=== PATIENT | male | born 1970 | race Caucasian/White ===

== ENCOUNTER 2018-10-15 11:30 | Outpatient (REF) | payer MEDICAID, SELFPAY ==
[2018-10-15 19:16] LABS: HGB 15.4 g/dL (13.5-17.5); Mean Corp. HGB Concentration 34.2 g/dL (32.0-36.0); Mean Corpuscular Hemoglobin 29.6 pg (27.0-33.0); Mean Corpuscular Volume 86.4 fL (80-95); Mean Platelet Volume 13.5 fL (8.0-11.0); RBC 5.21 m/cumm (4.50-6.00); RBC Distribution Width 13.3 % (11.8-14.1); White Blood Cell Count 8.64 k/cumm (4.4-10.8)
[2018-10-15 19:32] LABS: ALT 30 U/L (12-78); AST 18 U/L (15-37); Albumin 3.7 g/dL (3.4-5.0); Alkaline Phosphatase 78 U/L (46-116); Anion Gap 8.9 mmol/L (3-11); BUN 13 mg/dL (7-18); Bilirubin, Total 0.4 mg/dL (0.2-1.0); CO2 27.1 mmol/L (21.0-32.0); CREATININE 0.91 mg/dL (0.70-1.30); Calcium 8.5 mg/dL (8.5-10.1); Calculated LDL 125; Chloride 104 mmol/L (98-107); Cholesterol 176 mg/dL (50-200); Glucose 105 mg/dL (70-100); HDL Cholesterol 45 mg/dL (40-60); Potassium 4.1 mmol/L (3.5-5.1); Sodium 140 mmol/L (136-145); TSH 1.31 uIU/mL (0.358-3.74); Total Protein 6.7 g/dL (6.4-8.2); Triglyceride 31 mg/dL (30-150)
[2018-10-15 20:03] LABS: Platelet Count 119 x1000/uL (130-400)
[2018-10-15 20:09] LABS: Hemoglobin A1C 5.7 % (4.5-6.2)
[2018-10-18 11:07] LABS: PSA, Screening 0.6 ng/ml (0-2.5)
== END 2018-10-15 11:50 ==
LOC: NCHCN 11:30
PROVIDERS: PCP Physician Assistant Medical; Visit Provider Physician Assistant Medical
DX: R73.9 Hyperglycemia, unspecified (principal); N40.0 Benign prostatic hyperplasia without lower urinary tract symptoms; Z12.5 Encounter for screening for malignant neoplasm of prostate; Z13.6 Encounter for screening for cardiovascular disorders; Z13.29 Encounter for screening for other suspected endocrine disorder
CPT/HCPCS: 80053; 80061; 83721; 84153; 85027; 83036; 84443

== ENCOUNTER 2020-06-20 18:50 | Outpatient (REF) | payer MEDICAID, SELFPAY ==
[2020-06-20 20:13] LABS: HCT 47.7 % (40.0-50.0); HGB 16.3 g/dL (13.5-17.5); MCH 29.9 pg (27.0-33.0); MCHC 34.2 % (32.0-36.0); MCV 87.4 fL (80-95); MPV 12.5 fL (8.0-11.0); Platelet Count 169 10^3/uL (130-400); RBC 5.46 10^6/uL (4.36-5.78); RDW 12.8 % (11.8-14.1); RDW-SD 40.9 fL
[2020-06-20 20:25] LABS: COMMENT (LAB VIEW ONLY) 70.13 mg/dL
[2020-06-20 20:35] LABS: ALT 34 U/L (16-63); AST 27 U/L (15-37); Albumin 4.2 g/dL (3.4-5.0); Alkaline Phosphatase 73 U/L (46-116); Anion Gap 7.9 mmol/L (3-11); BUN 11 mg/dL (7-18); Bilirubin, Total 0.6 mg/dL (0.2-1.0); CO2 28.1 mmol/L (21.0-32.0); Chloride 101 mmol/L (98-107); Glucose 103 mg/dL (74-106); Sodium 137 mmol/L (136-145); TSH 2.27 uIU/mL (0.36-3.74); Total Protein 7.5 g/dL (6.4-8.2)
[2020-06-21 09:54] LABS: Bilirubin Negative (Negative); Blood Trace-intact (Negative); Clarity Clear (Clear); Glucose Negative (Negative); Ketones Negative (Negative); Leukocyte Esterase Negative (Negative); Nitrite Negative (Negative); Urobilinogen 0.2 EU/dL (Up TO 0.2)
[2020-06-21 10:07] LABS: Bacteria Rare HPF (Negative); Casts Negative LPF (Negative); Crystals Negative HPF (Negative); Epithelial Cells Rare HPF (Negative); Mucus Negative (Negative); RBC 0-2 HPF (0-2); WBC 0-2 HPF (0-5)
[2020-06-21 10:08] LABS: C & S Indicated? C&S Done As Ordered
[2020-06-21 19:36] LABS: PSA, Screening 0.8 ng/mL (0.0-3.5)
== END 2020-06-20 18:51 | disposition home or self-care (01) ==
LOC: NCHCN 18:50
PROVIDERS: PCP Physician Assistant Medical; Visit Provider Internal Medicine
DX: R31.9 Hematuria, unspecified (principal); R10.13 Epigastric pain; F17.200 Nicotine dependence, unspecified, uncomplicated; Z12.5 Encounter for screening for malignant neoplasm of prostate; Z13.29 Encounter for screening for other suspected endocrine disorder
CPT/HCPCS: 80053; 84153; 85027; 81003; 81015; 82043; 82570; 84443; 87086

== ENCOUNTER 2022-06-27 16:16 | Outpatient (REF) | payer MEDICAID, SELFPAY | END 2022-06-27 16:17 | disposition home or self-care (01) | LOC: LBN 16:16 | PROVIDERS: PCP Physician Assistant Medical; Visit Provider Urology | DX: C67.9 Malignant neoplasm of bladder, unspecified (principal) | CPT/HCPCS: 87086 ==

== ENCOUNTER 2022-08-05 16:33 | Outpatient (REF) | payer MEDICAID, SELFPAY ==
[2022-08-05 18:27] LABS: Abs Immature Grans 0.05 10^3/uL (0.0-0.06); Absolute Eosinophil Count 0.27 10^3/uL (0.0-0.7); Absolute Lymphocyte Count 2.11 10^3/uL (1.2-3.4); Absolute Monocyte Count 0.82 10^3/uL (0.1-0.8); Absolute Neutrophil Count 6.43 10^3/uL (1.2-6.7); Eosinophils % 2.8; HCT 45.6 % (40.0-50.0); HGB 15.7 g/dL (13.5-17.5); Immature Grans % 0.5; Lymphocytes % 21.6; MCH 30.5 pg (27.0-33.0); MCHC 34.4 % (32.0-36.0); MCV 89 fL (80-95); MPV 12.2 fL (8.0-11.0); Monocytes % 8.4; Neutrophils % 65.7; Platelet Count 161 10^3/uL (130-400); RBC 5.14 10^6/uL (4.36-5.78); RDW 12.7 % (11.8-14.1); RDW-SD 41.4 fL; WBC 9.78 10^3/uL (4.4-10.8)
[2022-08-05 18:46] LABS: ALT 38 U/L (16-63); AST 27 U/L (15-37); Albumin 3.8 g/dL (3.4-5.0); Alkaline Phosphatase 82 U/L (46-116); BUN 12 mg/dL (7-18); Bilirubin, Total 0.3 mg/dL (0.2-1.0); CREATININE 0.9 mg/dL (0.70-1.30); Calcium 8.9 mg/dL (8.5-10.1); Chloride 101 mmol/L (98-107); Estimated GFR 102.12 (mL/min/1.73m2); Glucose 105 mg/dL (74-106); Potassium 4.1 mmol/L (3.5-5.1); Sodium 138 mmol/L (136-145); TSH (W/Ref FT4) 2.16 uIU/mL (0.36-3.74); Total Protein 7.3 g/dL (6.4-8.2); Troponin I < 50 ng/L (<or=60)
[2022-08-05 18:49] LABS: Hemoglobin A1C 5.7 % (<5.7)
== END 2022-08-05 16:34 | disposition home or self-care (01) ==
LOC: NCHCN 16:33
PROVIDERS: PCP Physician Assistant Medical; Visit Provider Physician Assistant
DX: R55 Syncope and collapse (principal); Z13.1 Encounter for screening for diabetes mellitus; Z13.29 Encounter for screening for other suspected endocrine disorder
CPT/HCPCS: 80053; 83036; 84443; 84484; 85025

== ENCOUNTER 2023-03-13 17:08 | Outpatient (REF) | payer MEDICAID, SELFPAY ==
--- OUTSIDE RECORDS SUMMARY | 2023-03-13 17:11 | XMS_ITS | Continuity of Care Document ---
Author Name Unknown Organization [facility] Address [address] [place] [id number] Care Team Providers Care Examination Supervisor Name Role Phone Unavailable, Physician Primary Care Physician Un available Encounter [facility] NBR [id number] Date(s): 05/28/22 - 05/28/[address] [address]- Discharge Disposition: Home or Self Care Attending Physician: Nimo Londono MD Admitting Physician: Nimo Londono MD Referring Physician: Nimo Londono MD Allergies, Adverse Reactions, Alerts Substance Reaction Severity Status aspirin Nosebleed Mild Active Assessment and Plan Future Scheduled Tests Laboratory* PSA Diagnostic 02/04/22 Functional Status 05/28/22 Anti-Embolism Device Activity: Removed Anti-Embolism Device Removal Reason: Dis continued 05/28/22 Anti-Embolism Site Condition: No complic ations 05/28/22 Antiembolism Device Intermittent pneumat ic compression devices, knee high, bilat Family Member Travel History No recent t ravel Recent Travel History No recent travel Other exposure to Infectious Disease Non e Medications finasteride 5 mg =, Oral, Daily Start Date: 01/29/22 Status: Ordered tamsulosin 0.4 mg oral capsule 0.4 mg = 1 cap, Oral, Daily Start Date: 01/29/22 Status: Ordered Problem List Condition Confirmation Course Effective Dates Status Health St atus Informant Arthritis Confirmed Active Asthma Confirmed Active 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 Active GERD - Gastro-esophageal reflux disease Confirmed Active Elevated blood sugar Confirmed Active Bladder cancer Confirmed Active Spermatocele of epididymis, multiple Confirmed Active Tobacco abuse disorder Confirmed Active Procedures Procedure Date Related Diagnosis Body Site Status Transurethral Resection of B ladder Tumor 1 05/28/22 Completed TURBT - Transurethral resect ion of bladder tumor 07/18/21 Completed TURBT - Transurethral resect ion of bladder tumor 09/13/20 Completed Finger operation Complete d 1auto-populated from documented surgical case Results Laboratory List Name Date SARS-CoV-2 (COVID-19) PCR (GeneXpert) (C OVID 19 (GeneXpert)) 05/28/22 Most recent to oldest [Reference Range]: 1 SARS-CoV-2 (COVID-19) PCR (GeneXpert) [N egative] Negative (05/28/22 12:18 PM) Employed in healthcare? No *NA* (05/28/22 12:18 PM) Symptomatic as defined by CDC? No *NA* (05/28/22 12:18 PM) Hospitalized due to COVID-19? No *NA* (05/28/22 12:18 PM) In ICU? No *NA* (05/28/22 12:18 PM) Group care resident? No *NA* (05/28/22 12:18 PM) status? Not *NA* (05/28/22 12:18 PM) Orders for Microbiology Reports Name Date Urine Culture 05/28/22 Microbiology Reports TEST:Urine Culture STATUS:Order in Progress BODY SITE:Bladder SOURCE:Urine, Catheterized COLLECTED DATE/TIME:05/28/22 3:04 PM PRELIMINARY REPORT No growth first am read Vital Signs Most recent to oldest [Reference Range]: 1 2 3 Temperature Temporal Artery [36-38 Deg C] 36.2 Deg C (05/28/22 3:32 PM) 37.3 Deg C (05/28/22 12:31 PM) Peripheral Pulse Rate [60-100 bpm] 79 bpm (05/28/22 4:16 PM) 84 bpm (05/28/22 4:03 PM) 80 bpm (05/28/22 3:51 PM) Heart Rate Monitored [60-100 bpm] 81 bpm (05/28/22 4:22 PM) 83 bpm (05/28/22 3:46 PM) 90 bpm (05/28/22 3:32 PM) Respiratory Rate [12-24 br/min] 16 br/min (05/28/22 3:32 PM) 18 br/min (05/28/22 12:31 PM) Blood Pressure [90-140/60-90 mmHg] 145/99mmHg *HI* (05/28/22 4:16 PM) 143/100mmHg *HI* (05/28/22 4:03 PM) 148/95mmHg *HI* (05/28/22 3:46 PM) Weight 95.000 kg (05/21/22 4:38 PM) Weight Dosing 95.000 kg (05/21/22 4:38 PM) Height 170.000 cm (05/21/22 4:38 PM) Height/Length Dosing 170.000 cm (05/21/22 4:38 PM) Social History Social History Type Response Tobacco Current everyday tob acco user Tobacco Use:. 1.5 packs per day less than a pack a day per day. Started age 13.0 Years. Previous treatment: None. Sex Discharge instructions * Event Display: Discharge Instructions History and physical note * Event Display: History and Physical Update Patient Care team information Personnel Name: Unavailable, Physician
--- OUTSIDE RECORDS SUMMARY | 2023-03-13 17:11 | XMS_ITS | Continuity of Care Document ---
Author Name Unknown Organization [facility] Address [address] [place] [address] Care Team Providers Care Powder Mixer Name Role Phone Unavailable, Physician Primary Care Physician Un available Encounter [facility] NBR [id number] Date(s): 11/24/22 - 11/24/22 [facility] [address] [place], [place] [address] Discharge Disposition: Home Allergies, Adverse Reactions, Alerts Substance Reaction Severity Status aspirin Nosebleed Mild Active Assessment and Plan Future Appointments Future Scheduled Tests Laboratory* PSA Diagnostic 02/04/22 Medications finasteride 5 mg =, Oral, Daily [...] Complete d 1auto-populated from documented surgical case Social History Social History Type Response Tobacco Current everyday tob acco user Tobacco Use:. 1.5 packs per day less than a pack a day per day. Started age 13.0 Years. Previous treatment: None. Sex Patient Care team information Care Team Personnel Name: Unavailable, Physician Position: No Access Member Role: Primary Care Physician Care Team Related Persons Name: SALINA JIM Address: Home [address] [place] [phone] [facility]
--- OUTSIDE RECORDS SUMMARY | 2023-03-13 17:11 | XMS_ITS | Continuity of Care Document ---
Author Name Unknown Organization [facility] Address [address] [place] [address] Care Team Providers Care Gravity Prospecting Operator Helper Name Role Phone Unavailable, Physician Primary Care Physician Un available Encounter [facility] NBR [id number] Date(s): 10/08/22 - 10/08/22 [facility] [address] [place] [address]- Encounter Diagnosis Bladder cancer(Discharge Diagnosis) - 10/08/22 BPH with obstruction/lower urinary tract symptoms(Discharge Diagnosis) - 10/08/22 Other obstructive and reflux uropathy(Discharge Diagnosis) - 10/08/22 Tobacco abuse disorder(Discharge Diagnosis) - 10/08/22 Discharge Disposition: Home or Self Care Attending Physician: Nimo Londono MD Referring Physician: Nimo Londono MD Allergies, Adverse Reactions, Alerts Substance Reaction Severity Status aspirin Nosebleed Mild Active Assessment and Plan Future Appointments Future Scheduled Tests Laboratory* PSA Diagnostic 02/04/22 Functional Status 10/08/22 Recent Travel History No recent travel Other [...] surgical case Results Laboratory List Name Date .Urinalysis POCT 10/08/22 Most recent to oldest [Reference Range]: 1 Method of Collect POC Clean Catch *NA* (10/08/22 1:41 PM) Specific [place], Ur POC 1.010 *NA* (10/08/22 1:41 PM) Specimen Color POC [Yellow] Yellow (10/08/22 1:41 PM) Glucose, Urine POC Negative mg/dL *NA* (10/08/22 1:41 PM) Bilirubin, Urine POC [Negative] Negative (10/08/22 1:41 PM) Ketones, Urine POC [Negative mg/dL] Nega tive mg/dL (10/08/22 1:41 PM) Blood, Urine POC [Negative] Trace *ABN* (10/08/22 1:41 PM) pH, Urine POC 6.5 *NA* (10/08/22 1:41 PM) Protein, Urine POC [Negative mg/dL] Nega tive mg/dL (10/08/22 1:41 PM) Urobilinogen, Urine POC [0.2] 0.2 (10/08/22 1:41 PM) Nitrite, Urine POC [Negative] Negative (10/08/22 1:41 PM) Leuk Esterase, Urine POC [Negative] Nega tive (10/08/22 1:41 PM) Clarity, Urine POC [Clear] Clear (10/08/22 1:41 PM) Vital Signs Most recent to oldest [Reference Range]: 1 Temperature Tympanic [36.6-37.9 Deg C] 3 6.7 Deg C (10/08/22 1:38 PM) Blood Pressure [90-140/60-90 mmHg] 144/9 2mmHg *HI* (10/08/22 1:38 PM) Weight 95 kg (10/08/22 1:38 PM) Weight Measured (lbs) 209.439 lb (10/08/22 1:38 PM) Height 170 cm (10/08/22 1:38 PM) Height/Length Measured (inches) 66.93 in ch (10/08/22 1:38 PM) BSA Measured 2.12 m2 (10/08/22 1:38 PM) Body Mass Index 32.87 kg/m2 (10/08/22 1:38 PM) Social History Social History Type Response Tobacco Current everyday tob acco user Tobacco Use:. 1.5 packs per day less than a pack a day per day. Started age 13.0 Years. Previous treatment: None. Sex Physician Outpatient Note * Nimo Londono MD: PERFORM Event Display: Office Clinic Note Physician Authored Date: [id number] CHAS JIM :1970 Age:52 years Sex:Male Visit Date:10/08/2022 Primary Care Physician: Unavailable, Physician Chief Complaint Cystoscopy History of Present Illness Mr. Jim is a pleasant 52 year-old man who presents today for surveillance cystoscopy.? His last surveillance cystoscopy was in February 2022.? He has a known diagnosis of LGLS urothelial carcinoma, and underwent TURBT on 07/19/21 and again on 05/28/22 for recurrences. ?? He is currently taking tamsulosin to 0.4 mg po qd. He tried to increase the dose, but did not tolerate it due to dizziness.?? He has taken both Gemtesa and Myrbetriq, and did not get benefit from either. ?? He tells me that he was first told that he had an enlarged prostate in 2008. His initial TURBT was on 09/14/20, when he was found to have LGLS urothelial carcinoma.?? He recurred on 07/19/21, and againon 05/28/22.? He also has BPH/LUTS for which he takes tamsulosin and finasteride. He underwent a CT abdomen/pelvis in [place], [place] on 06/28/20; this showed small non - obstructing renal calculi. He has never had an episode of renal colic. He continues to smoke.?? Physical Exam Vitals & Measurements T:??36.7?C ??(Tympanic)?? BP:??144/92?? SpO2:??94%?? HT:??170??cm?? WT:??95??kg?? BMI:??32.87?? BSA:??2.12?? Procedure CYSTOSCOPY: ? After the patient give his informed consent??to undergo cystoscopy, he was placed supine on the table.? The genitalia were prepped and draped in standard sterile fashion.? A time-out was completed.?? Lidocaine jelly was instilled per urethra as a local anesthetic. Flexible cystoscopy was performed with a 17 Fr flexible cystoscope. The pendulous urethra was foundto be normal, with no strictures, lesions, or diverticula noted. Prostatic urethra showed trilobar hypertrophy, with coaptation of the lobes. The bladder demonstrated no masses, no foreign bodies, and no trabeculations, and no cellules. The ureteral orifices were orthotopic bilaterally, and clear efflux was noted bilaterally as well. The patient tolerated the procedure well and remained stable throughout. ?? Assessment/Plan 1.??BPH with obstruction/lower urinary tract symptoms??N40.1 ?? 2.??Tobacco abuse disorder??Z72.0 ?? Bladder cancer??C67.9 Ordered: Urine Dipstick Clinic POC (RE), 10/08/22 13:40:00 EDT, Bladder cancer, 10/08/22 13:40:00 EDT ?? IMPRESSION:? Mr. Jim is a pleasant 52 year-old man with LGLS urothelial carcinoma, originallydiagnosed on 09/14/20. He had a recurrence on 07/19/21,?? and again on 05/28/22; both were LGLS disease. He also has BPH with bothersome LUTS, and is currently taking low-dose tamsulosin and finasteride. He complains of bothersome frequency and urgency, and has failed Myrbetriq and Gemtesa.? PLAN: 1. He will continue low-dose tamsulosin and finasteride. 2. Surveillance cystoscopy in 6 months. Problem List/Past Medical History Ongoing Arthritis Asthma Bladder cancer BPH with obstruction/lower urinary tract symptoms Elevated blood sugar GERD - Gastro-esophageal reflux disease Spermatocele of epididymis, multiple Tobacco abuse disorder Historical No qualifying data Procedure/Surgical History ???Transurethral Resection of Bladder Tumor (05/28/2022)???TURBT - Transurethral resection of bladder tumor (07/19/2021)???TURBT - Transurethral resection of bladder tumor (09/14/2020)???Finger operation Medications finasteride, 5 mg, Oral, Daily tamsulosin 0.4 mg oral capsule, 0.4 mg= 1 cap, Oral, Daily Allergies aspirin??(Nosebleed) Social History Alcohol Current, Beer, Daily Electronic Cigarette/Vaping Electronic Cigarette Use: Never. Substance Use Current, Marijuana, Previous treatment: None. Tobacco Current everyday tobacco user Tobacco Use:. 1.5 packs per day less than a pack a day per day. Started age 13.0 Years. Previous treatment: None. Lab Results Test Name Test Result Date/Time Method of Collect POC Clean Catch 10/08/2022 13:41 EDT Specimen Color POC Yellow 10/08/2022 13:41 EDT Clarity, Urine POC Clear 10/08/2022 13:41 EDT Glucose, Urine POC Negative 10/08/2022 13:41 EDT Bilirubin, Urine POC Negative 10/08/2022 13:41 EDT Ketones, Urine POC Negative 10/08/2022 13:41 EDT [place], Ur POC 1.010 10/08/2022 13:41 EDT pH, Urine POC 6.5 10/08/2022 13:41 EDT Protein, Urine POC Negative 10/08/2022 13:41 EDT Urobilinogen, Urine POC 0.2 10/08/2022 13:41 EDT Nitrite, Urine POC Negative 10/08/2022 13:41 EDT Blood, Urine POC Trace 10/08/2022 13:41 EDT Leuk Esterase, Urine POC Negative 10/08/2022 13:41 EDT Electronically Signed on 10/08/22 02:12 PM Nimo Londono MD Patient Care team information Care Team Personnel Name: Unavailable, Physician Position: No Access Member Role: Primary Care Physician Care Team Related Persons Name: SALINA JIM Address: Home [address], [place] [id number] [facility]
--- OUTSIDE RECORDS SUMMARY | 2023-03-13 17:11 | XMS_ITS | Continuity of Care Document ---
Author Name Unknown Organization [facility] Address [address] [place] [address] Encounter [facility] NBR [id number] Date(s): 02/04/22 - 02/04/22 [facility] [address] [place], [place] [address] Discharge Disposition: Home or Self Care Allergies, Adverse Reactions, Alerts Substance Reaction Severity Status aspirin Unknown Active Assessment and Plan Future Appointments Medications finasteride 5 mg =, Oral, Daily Start Date: 01/29/22 Status: Ordered tamsulosin 0.4 mg oral capsule 0.4 mg = 1 cap, Oral, Daily Start Date: 01/29/22 Status: Ordered Problem List Condition Confirmation Course Effective Dates Status Health St atus Informant Anxiety Confirmed Active 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 Active Elevated blood sugar Confirmed Active Spermatocele of epididymis, multiple Confirmed Active Tobacco abuse disorder Confirmed Active Procedures Procedure Date Related Diagnosis Body Site Status TURBT - Transurethral resect ion of bladder tumor 07/18/21 Completed TURBT - Transurethral resect ion of bladder tumor 09/13/20 Completed Social History Social History Type Response Tobacco Current everyday tob acco user Tobacco Use:. 1.5 packs per day per day. Started age 12.0 Years. Previous treatment: None. Sex
--- OUTSIDE RECORDS SUMMARY | 2023-03-13 17:11 | XMS_ITS | Continuity of Care Document ---
Author Name Unknown Organization [facility] Address [address] [place] [address] Encounter [facility] [facility] NBR [id number] Date(s): 05/12/22 - 05/12/22 [facility] [address] [place], [place] [address] Discharge Disposition: Home or Self Care Allergies, Adverse Reactions, Alerts Substance Reaction Severity Status aspirin Unknown Active Assessment and Plan Future Appointments Future Scheduled Tests Laboratory* PSA Diagnostic 02/04/22 Medications finasteride 5 mg =, Oral, Daily Start Date: 01/29/22 Status: Ordered tamsulosin 0.4 mg oral capsule 0.4 mg = 1 cap, Oral, Daily Start Date: 01/29/22 Status: Ordered Problem List Condition Confirmation Course Effective Dates Status Health St atus Informant 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 [...]
[2023-03-13 18:51] LABS: Abs Immature Grans 0.05 10^3/uL (0.0-0.06); Absolute Basophil Count 0.11 10^3/uL (0.0-0.2); Absolute Eosinophil Count 0.22 10^3/uL (0.0-0.7); Absolute Lymphocyte Count 1.97 10^3/uL (1.2-3.4); Absolute Monocyte Count 0.81 10^3/uL (0.1-0.8); Absolute Neutrophil Count 7.14 10^3/uL (1.2-6.7); Basophils % 1.1; Eosinophils % 2.1; HCT 50.6 % (40.0-50.0); Immature Grans % 0.5; Lymphocytes % 19.1; MCH 29.9 pg (27.0-33.0); MCHC 33.6 % (32.0-36.0); MCV 89 fL (80-95); MPV 12.3 fL (8.0-11.0); Monocytes % 7.9; Neutrophils % 69.3; Platelet Count 167 10^3/uL (130-400); RBC 5.69 10^6/uL (4.36-5.78); RDW 12.1 % (11.8-14.1); RDW-SD 39.8 fL
[2023-03-13 19:02] LABS: ALT 28 U/L (16-63); AST 20 U/L (15-37); Albumin 3.9 g/dL (3.4-5.0); Alkaline Phosphatase 82 U/L (46-116); Anion Gap 10.8 mmol/L (3-11); BUN 10 mg/dL (7-18); Bilirubin, Total 0.4 mg/dL (0.2-1.0); CO2 26.2 mmol/L (21.0-32.0); CREATININE 0.9 mg/dL (0.70-1.30); Calcium 9.3 mg/dL (8.5-10.1); Chloride 102 mmol/L (98-107); Estimated GFR 102.12 (mL/min/1.73m2); Glucose 110 mg/dL (74-106); Potassium 4.1 mmol/L (3.5-5.1); Sodium 139 mmol/L (136-145); Total Protein 7.3 g/dL (6.4-8.2)
== END 2023-03-13 17:09 | disposition home or self-care (01) ==
LOC: NCHCN 17:08
PROVIDERS: PCP Physician Assistant; Visit Provider Physician Assistant
DX: K92.1 Melena (principal)
CPT/HCPCS: 80053; 85025

== ENCOUNTER 2023-04-03 12:19 | Day surgery (SDC) | payer MEDICAID, SELFPAY ==
--- NOTE | 2023-04-02 18:41 | ENDO_ITS ---
Date of service: 04/03/23 Time of Service: 14:39 Endoscopy Report DATE OF PROCEDURE: 04/03/23 PRE-OP DIAGNOSIS: rectal bleeding/family hx of esophageal cancer/smoker POST-OP DIAGNOSIS: other (Mild duodenitis) SURGEON: Katelynn Lockwood ANESTHESIA TYPE: General:No Airway ESTIMATED BLOOD LOSS: 1 PATHOLOGY: other COMPLICATIONS: None DISPOSITION: same day PROCEDURE DESCRIPTION: After informed consent was obtained the patient was take to the procedure room and placed in a supine position. Monitors were applied and a time out was done. The patients name, date of , procedure type, allergies to medications and metal in their body was reviewed. A bite block was placed and the patient was sedated. Once sedated and comfortable the gastroscope was advanced through the oropharynx which was grossly normal into the esophagus. The proximal and mid- esophagus were normal. In the distal esophagus: There are no varices/diverticula or stricture. The scope was advanced into the stomach and through the pylorus into the 3rd portion of the duodenum. The duodenum was not ed to have mild duodenitis. Biopsies were done, all specimens are retrieved and no bleeding is noted. The scope was retracted back into the stomach and biopsies were done to rule out H. pylori. There were no ulcers/gastritis. The scope was retroflexed. The cardia and fundus were noted to be normal. There no hiatal hernia noted. The scope was retracted back into the esophagus and biopsies were done of the GE junction to rule out Mckoy's. The Z line was irregular. The GE junction was at 40 cm. Biopsies were done at distal esophagus at 38 cm as well the scope was removed and proceeded to CE.
--- NOTE | 2023-04-02 18:47 | W.COLOREPORT ---
Date of service: 04/03/23 Time of Service: 14:41 Colonoscopy Report Date of procedure: 04/03/23 Pre-op diagnosis general: BRBPR/hemorrhoids/family hx of CRC Post-op diagnosis procedure note: other (Internal and external hemorrhoids/polyps/minor diverticula) Surgeon: Katelynn Lockwood Anesthesia Type: General:No Airway Estimated blood loss (mL): 4 Pathology: other Complications: None Disposition: same day Prep: Miralax/Dulcolax Retraction Time: 30 Procedure Description: After informed consent was obtained the patient was taken to the procedure room and placed in a left decubitous position. Monitors were applied and a time out was done. The patients name, date of , procedure, allergies to medications and metal in their body was reviewed. The patient was then sedated. Once sedated and comfortable a rectal exam was done. External exam was normal. Internal exam revealed a normal sphincter tone and no palpable masses. The prostate without masses. The scope was then introduced and retrofelexed. Grade 2 internal hemorrhoids in all 3 columns were identified. The scope was then advanced to the cecum without difficulty. The TI and appendiceal orifice were identified. The prep was BBPS 3 in the left and transverse colon, and a 2 in the right colon for a total of 8. The scope was then slowly retracted over 30 minutes back into the rectum. There are multiple polyps that we removed today. He has a flat 0.5 cm polyp at 70 cm that is removed with a cold biting forcep. He has a .75 cm flat polyp at 70 cm that is removed with a cold forceps. He had x5 polyps at 20 cm. These ranged in size from 0.75 to 2.5 cm. They are all removed with a cold biting forcep. And he has x5 polyps in the rectum again ranging in size from 0.75 to 0.5 cm. And these are all removed with a cold biting forcep. All specimen is retrieved and no bleeding is noted. He has grade II x3 columns internal hemorrhoids. These are banded x3 columns today. No bleeding is noted. The scope was removed and the patient was woken up and taken back to Same day surgery in stable condition. The patient tolerated the procedure well and there were no immediate complications. Follow up: The patient should follow up in 3-5 years, pathology pending, unless they develop changes in bowel habits or other new gastrointestinal complaints.
--- NOTE | 2023-04-02 18:51 | W.PM.DSUDISC ---
Date of service: 04/03/23 Time of Service: 14:49 Discharge Plan Disposition Patient Disposition: Home Condition: Good Discharge Details Reason For Visit: stomach & colon scope Attending Provider: Katelynn Lockwood Primary Care Provider: Patricia Javier Home Meds and New Rx's Prescriptions: No Action tamsulosin 0.4 MG capsule 0.4 mg PO DAILY Qty: 90 pantoprazole 40 mg tablet,delayed release (DR/EC) 40 mg PO DAILY Patient Comments: PCP finasteride 5 mg tablet 5 mg PO DAILY benzonatate 100 mg capsule 100 mg PO BID-TID PRN losartan 25 mg tablet 25 mg PO DAILY multivitamin [Daily Multi-Vitamin] Tablet 1 tab PO DAILY Discharge Instructions Additional Instructions: [facility] Colonoscopy Post-Op Instructions Instructions for Everyone who is given Anesthesia: For your safety, please do the following for the next twenty-four (24) hours: *Do Not operate a motor vehicle (car, truck, motorcycle, etc.) *Do Not drink alcoholic beverages or use any recreational drugs for the first 24 hours or while taking pain medications. The medications in your body may have a reaction that can be dangerous. *Do Not make any important decisions or sign any important papers. Findings: Stomach- normal Colon-internal and external hemorrhoids. See instructions below Minor diverticula-make sure you are moving your bowels on a regular basis and not straining to go to the bathroom. Polyps-multiple. Follow up: My office will send you a letter in 2 to 3 weeks time with the results of the pathology and when we want you to repeat the colonoscopy, most likely in 3 to 5 years time. 1. No lifting over 20 pounds or strenuous activity for the first 24 hours after your procedure. After 24 hours there are no restrictions on your activity but you may feel fatigued for a few days. 2. After you arrive home you may have a light meal and return to your normal diet as you can tolerate it without feeling sick to your stomach. 3. You may have a bloated, gaseous feeling in your belly (abdomen) after a colonoscopy. Passing gas and belching will help. Walking or lying down on your left side with your knees flexed may relieve the discomfort. Rubber Band Ligation for Hemorrhoids: What to Expect at Home Your Recovery In this procedure, a hemorrhoid was tied off at its base with rubber bands. You may feel pain and have a feeling of fullness in your lower belly. Or you may feel as if you need to have a bowel movement. This usually goes away within several days after the surgery. You may need pain medicine during this time. You may have a small amount of bleeding from your anus about 7 to 10 days after surgery, when your hemorrhoid falls off. This is normal. Some people are able to return to regular activities in 24 hours. Others may need 2 to 3 days of rest. You will need to avoid heavy lifting and straining with bowel movements for the next 5-7 days. This care sheet gives you a general idea about how long it will take for you to recover. But each person recovers at a different pace. Follow the steps below to get better as quickly as possible. How can you care for yourself at home? Activity ? Rest when you feel tired. Getting enough sleep will help you recover. ? Try to walk each day. Start by walking a little more than you did the day before. Bit by bit, increase the amount you walk. Walking boosts blood flow and helps prevent pneumonia and constipation. ? Avoid strenuous activities, such as bicycle or horse back riding, jogging, weight lifting, or aerobic exercise, for 1 week ? For 1 week avoid lifting anything that would make you strain (generally over 30#?s). This may include heavy grocery bags and milk containers, a heavy briefcase or backpack, cat litter or dog food bags, a vacuum aircraft cabin cleaner, or a child. ? You may take showers and baths as usual. Pat your anal area dry when you are done. ? Ask your doctor when you can drive again. ? You may need to take a day off work. It depends on the procedure you had, the type of work you do, and how you feel. Diet ? You can eat your normal diet. If your stomach is upset, try eating bland, low-fat foods like plain rice, broiled chicken, toast, and yogurt. ? Drink plenty of fluids (unless your doctor has told you not to). ? It is important to eat high-fiber foods after your procedure. This will make it easier to have bowel movements and keep your hemorrhoids from coming back. ? You may notice that your bowel movements are not regular right after your procedure. This is common. Try to avoid constipation and straining with bowel movements. You may want to take a fiber supplement every day. If you have not had a bowel movement after a couple of days, ask your doctor about taking a mild laxative. Pain Control ? Your doctor will tell you if and when you can restart your medicines. He or she will also give you instructions about taking any new medicines. ? If you take aspirin or some other blood thinner, ask your doctor if and when to start taking it again. ? Take pain medicines? as directed: Take tylenol 500 mg by mouth with food every 4 hours as needed for pain. Or ibuprofen 600 mg by mouth with food every 6 hours as needed for pain.? Do not take tylenol if you have a history of heavy drinking, hepatits C or liver problems.? Do not take ibuprofen if you have a history of stomach ulcers/problems, bleeding problem or kidney issues. o??? Take your medicine after meals (unless your doctor has told you not to). ? Sit in 5 to 10 inches plain of warm water (sitz bath) for 15 to 20 minutes 3 times a day and after bowel movements. Then pat the area dry. Do this as long as you have pain in your anal area. ? Put ice or a cold pack on the area for 10 to 20 minutes at a time. Try to do this every 1 to 2 hours for the next 3 days (when you are awake). Put a thin cloth between the ice and your skin. ? Support your feet with a small step stool when you sit on the toilet. This helps flex your hips and places your pelvis in a squatting position. This can make bowel movements easier after your procedure. ? Miralax as needed to avoid constipation or straining to move your bowels. When should you call for help? Call?911?anytime you think you may need emergency care. For example, call if: ? You passed out (lost consciousness). ? You are short of breath. Call your doctor or nurse advice line now?or seek immediate medical care if: ? You cannot pass stools or gas. ? You are sick to your stomach and cannot drink fluids. ? Bright red blood has soaked through the bandage. ? You have signs of a blood clot in your leg (called a deep vein thrombosis), such as: o??? Pain in the calf, back of your knee, thigh, or groin. o??? Redness and swelling in your leg or groin. ? You have signs of infection, such as: o??? Increased pain, swelling, warmth, or redness. o??? Red streaks leading from the area. o??? Pus draining from the area. o??? A fever. Call the office at [phone] (Office) or [phone] (Hospital) right away if you notice any of the following: a.Vomiting of blood or ?coffee ground stools?. b.Rectal bleeding 1Tbsp, blood clots or continuous bleeding. c.Severe belly (abdominal) pain. d.A hard distended belly (abdomen) and an inability to pass gas. 4. Please don?t expect to have a normal BM (bowel movement) for 2-3 days after your procedure. 5. If there are questions regarding the findings of your procedure, please contact your doctor 6. If you are unable to contact your doctor with a problem, contact the hospital at [phone]. 7. Continue all your regular medications unless directed otherwise. I understand the above instructions and have no questions. Signature of Patient or Adult Escort Name of Responsible Adult Escort Signature of Nurse Date/Time Activity:: see above Diet:: see above Discharge Orders Discharge Orders: Discharge Order (Routine); Ordered 04/03/23 Ordered By: Katelynn Lockwood DS: Diagnosis Discharge Diagnosis (1) Hypertension: Status: Chronic (2) Alcohol use: Status: Acute (3) Cigarette smoker: Status: Acute (4) GERD (gastroesophageal reflux disease): Status: Chronic (5) Blood in stool: Status: Acute (6) BPH (benign prostatic hyperplasia): (7) Prediabetes: (8) Family history of esophageal carcinoma: (9) Bladder cancer: (10) Family history of colon cancer in mother: Status: Acute
--- NOTE | 2023-04-03 12:10 | ANES.PREOP_ITS ---
General Info Date of Service Date Performed: 04/03/23 Height: 5 ft 7 in Weight: 89.358 kg Body Mass Index (BMI): 30.8 Surgical Procedure: Operation Date: 04/03/23 12:55 Proposed Procedure Side Surgeon p Colonoscopy/Gastroscopy Katelynn Lockwood DO s Possible Hemorrhoid Banding Katelynn Lockwood DO Meds Allergies and Home Medications Allergies Allergy/AdvReac Type Severity Reaction Status Date / Time aspirin Allergy Severe Other (See Verified 04/03/23 12:34 Comment) Home Medication Medication Instructions Recorded tamsulosin 0.4 mg capsule 0.4 mg PO DAILY #90 tab-caps 08/18/13 benzonatate 100 mg capsule 100 mg PO BID-TID PRN 03/17/23 finasteride 5 mg tablet 5 mg PO DAILY 03/17/23 losartan 25 mg tablet 25 mg PO DAILY 03/17/23 pantoprazole 40 mg tablet,delayed 40 mg PO DAILY 03/17/23 release multivitamin (Daily Multi-Vitamin 1 tab PO DAILY 04/02/23 tablet) Current Visit Medications: Current Medications Generic Name Dose Route Start Last Admin Trade Name Freq PRN Reason Stop Dose Admin Hyoscyamine Sulfate 0.125 mg 04/03/23 10:35 Hyoscyamine 0.125 Mg Sl/Oral/Chew SL 05/03/23 10:34 DIRECTED PRN Ringer's Solution 1,000 mls @ 80 mls/hr 04/03/23 06:00 IV 05/02/23 23:59 INFUSION [facility] IV Miscellaneous Supplies 1 each 04/03/23 06:00 Iv Access IV 05/02/23 23:59 DIRECTED [facility] Ondansetron HCl 4 mg 04/03/23 10:35 Ondansetron 4 Mg/2 Ml Vial IVP 05/03/23 10:34 Q4H PRN PRN Nausea / Vomiting Sodium Chloride 0 ml 04/03/23 06:00 Normal Saline Flush 10 Ml Syr IV 05/02/23 23:59 PRN PRN Sodium Chloride 0 ml 04/03/23 06:00 Normal Saline 10 Ml Vial IJ 05/02/23 23:59 DIRECTED PRN Sterile Water 0 ml 04/03/23 06:00 Water,Injection,Sterile 10 Ml Vial IJ 05/02/23 23:59 DIRECTED PRN PFSH Active Problems Active Problems: Problem Status Onset Code Family history of colon cancer in mother Z80.0 Hypertension I10 Alcohol use Z78.9 Cigarette smoker F17.210 GERD (gastroesophageal reflux disease) K21.9 Blood in stool K92.1 Medical History Medical History (Updated 04/02/23 @ 18:52 by Katelynn Lockwood DO) BPH (benign prostatic hyperplasia) Spermatocele of epididymis, multiple Prediabetes Anxiety Sciatica, right side Spermatocele Urolithiasis Syncope Family history of esophageal carcinoma Convulsions Per pt. states it only happened once, stated he coughed and blacked out but could hear everything, but could not move. Stated he had it worked up at [facility] and they couldnt find out what caused it. [facility] Note Ghazal Callaway APRN Neurology: EEG was normal. Pt. has not had another episode concerning for seizure. I think it was a syncopal episode secondary to coughing. At this time I do not think patient needs to be on antiseizure medication and can follow-up with PCP Bladder cancer Tobacco Smoking/Tobacco Use Status: Current every day Tobacco Type: cigarettes Alcohol Alcohol Intake: current Alcohol intake frequency: 3 or more drinks per day Alcohol type: beer Substance Use Substance use: Daily Substance use type: does not use Vital Signs and Lab Results Vital Signs Most Recent Vital Signs in EMR: Temp Pulse Resp BP Pulse Ox 36.4 C L 104 H 18 153/101 H 96 04/03/23 12:20 04/03/23 12:20 04/03/23 12:20 04/03/23 12:20 04/03/23 12:20 Lab Results Blood Type / Crossmatch: No Data to Display Complete Blood Count: White Blood Count 10.30 10^3/uL (4.4-10.8) 03/13/23 14:15 Red Blood Count 5.69 10^6/uL (4.36-5.78) 03/13/23 14:15 Hemoglobin 17.0 g/dL (13.5-17.5) 03/13/23 14:15 Hematocrit 50.6 % (40.0-50.0) H 03/13/23 14:15 Platelet Count 167 10^3/uL (130-400) 03/13/23 14:15 Complete Metabolic Panel: Sodium 139 mmol/L (136-145) 03/13/23 14:15 Potassium 4.1 mmol/L (3.5-5.1) 03/13/23 14:15 Chloride 102 mmol/L (98-107) 03/13/23 14:15 Carbon Dioxide 26.2 mmol/L (21.0-32.0) 03/13/23 14:15 BUN 10 mg/dL (7-18) 03/13/23 14:15 Creatinine 0.9 mg/dL (0.70-1.30) 03/13/23 14:15 Est GFR (CKD-EPI 2020) 102.12 (mL/min/1.73m2) 03/13/23 14:15 Calcium 9.3 mg/dL (8.5-10.1) 03/13/23 14:15 Albumin 3.9 g/dL (3.4-5.0) 03/13/23 14:15 Glucose 110 mg/dL (74-106) H 03/13/23 14:15 Liver Function Panel: Alanine Aminotransferase (ALT/SGPT) 28 U/L (16-63) 03/13/23 14: 15 Aspartate Amino Transf (AST/SGOT) 20 U/L (15-37) 03/13/23 14:15 Coagulation Panel: No Data to Display Cardiac Panel: No Data to Display Arterial Blood Gas: No Data to Display Venous Blood Gas: No Data to Display Pancreas Panel: No Data to Display Thyroid Panel: No Data to Display Infectious Disease: No Data to Display Blood Cultures: No Data to Display Toxicology Panel: No Data to Display Anesthesia Assessment and Plan Anesthesia History Personal History: No History of Anesthesia Complications Family History: No Family History of Anesthesia Complications Exercise Tolerance Exercise Tolerance: Metabolic Equivalents>4 Cardiac & Pulmonary Exam Cardiac Exam: Normal S1/S2 Heart Sounds Pulmonary Exam: Clear Bilateral Breath Sounds Implantable Cardiac Device Does patient have a Pacemaker or an ICD?: No Airway Exam Known Difficult Airway: No Mallampati Class: 3 Mouth Opening: Normal (> 3cm) Thyromental Distance: Greater than 3 cm Neck Range of Motion: Full ROM Neck Circumference: Normal Teeth Condition: Generalized Poor Dentition and Loose or Chipped (Two top left teeth loose. Discussed risks of tooth loss due to how loose they are. ) ASA Classification ASA Score: ASA 2 Emergency Case?: No NPO Status NPO Status: NPO Clears >2 hours, Solids >8 hours Anesthesia Plan Resuscitation Status: Full Code Anesthesia Technique: General Anesthesia Airway Planned: Natural Airway Monitors Used: Standard Monitors Preoperative Comments:: 52 yo male for EGD/colo. Sig PMHx: HTN (losartan), GERD (pantoprazole), anxiety, preDM, smoker (1-2 PPD), daily cannabis (2-3 joints/day), daily EtOH (6 pack bud/day).
[2023-04-03 12:16] VITALS: BMI 30.8
[2023-04-03 12:20] VITALS: BP 153/101; PULSE 104; RESP 18; TEMP 36.4; O2SAT 96
[2023-04-03] MEDS: Lactated Ringers 1,000 ML 80 ML IV (12:56)
--- NOTE | 2023-04-03 13:30 | BOWEL_PTH ---
PATIENT: Herminio Reyes JR LOC: [facility] U#:[id number] AGE/SX: 52/M ROOM: RE04/03/[address]: Katelynn Lockwood : 1970 BED: DIS: 04/03/2023 SPEC #: [id number] RECD: 04/03/23 18:10 STATUS: TAMAR PICHARDO #: [id number] VERITO: 04/03/23 13:[address]: Katelynn Lockwood DEPT: Surgical Specimen RECD BY: Jennifer Leon ENTERED: 04/03/23 18:13 SP TYPE: Bowel OTHR DR: Patricia Javier Tissues: 1 - BIOPSY BOWEL 2 - BIOPSY BOWEL 3 - STOMACH BIOPSY 4 - STOMACH BIOPSY 5 - ESOPHAGUS BIOPSY 6 - ESOPHAGUS BIOPSY 7 - BIOPSY BOWEL 8 - BIOPSY BOWEL 9 - BIOPSY BOWEL 10 - BIOPSY BOWEL Procedures: GROSS AND MICRO LEVEL 4 IMMUNOPEROXIDASE STAIN Comments: [id number]
[2023-04-03 14:32] VITALS: BP 133/91; PULSE 73; RESP 18; TEMP 36.6; O2SAT 98
--- NOTE | 2023-04-03 14:36 | W.ANESPOSTOP ---
Postoperative Evaluation Date, Time and Location Date Performed: 04/03/23 Time Performed: 14:36 Patient Location: Day Surgery Unit Vital Signs Most Recent Imported Vital Signs: Most Recent Vital Signs Temp Pulse Resp BP Pulse Ox 36.6 C 73 18 133/91 H 98 04/03/23 14:32 04/03/23 14:32 04/03/23 14:32 04/03/23 14:32 04/03/23 14:32 Pain Score Most Recent Pain Score: Most Recent Pain Score Pain Level 2 04/03/23 14:32 Assessment Mental Status: Awake (Alert & Oriented to Patient Baseline) Airway and Respiratory Function: Patent airway with normal (patient baseline) respiratory exam Cardiovascular Function: Hemodynamically Stable Hydration Status: Adequately Hydrated Nausea & Vomiting: No Nausea or Vomiting Pain: Pt. Denies Any Pain Peripheral Nerve Block: Patient did not receive a nerve block
[2023-04-03] MEDS: Acetaminophen 500 MG TAB 1000 MG PO (14:42)
[2023-04-03 15:05] VITALS: BP 148/92; PULSE 61; RESP 16; TEMP 36.4; O2SAT 96
== END 2023-04-03 12:20 | disposition home or self-care (01) ==
PROVIDERS: PCP Physician Assistant; Visit Provider Surgery
PROC: (CPT 45380; principal; 2023-04-03 12:45)
PROC: (CPT 45380; 2023-04-03 12:45)
DX: Z12.11 Encounter for screening for malignant neoplasm of colon (principal); K92.1 Melena; D12.4 Benign neoplasm of descending colon; K57.30 Diverticulosis of large intestine without perforation or abscess without bleeding; K21.9 Gastro-esophageal reflux disease without esophagitis; Z80.0 Family history of malignant neoplasm of digestive organs; F17.210 Nicotine dependence, cigarettes, uncomplicated; K64.1 Second degree hemorrhoids
CPT/HCPCS: 45380; 46221; 43239; 88305; 88361; J1885; J2704

== ENCOUNTER 2023-04-14 17:12 | Outpatient (REF) | payer MEDICAID, SELFPAY ==
[2023-04-14 19:14] LABS: Abs Immature Grans 0.04 10^3/uL (0.0-0.06); Absolute Basophil Count 0.05 10^3/uL (0.0-0.2); Absolute Eosinophil Count 0.13 10^3/uL (0.0-0.7); Absolute Lymphocyte Count 2.26 10^3/uL (1.2-3.4); Absolute Monocyte Count 0.66 10^3/uL (0.1-0.8); Absolute Neutrophil Count 5.31 10^3/uL (1.2-6.7); Basophils % 0.6; Eosinophils % 1.5; HCT 49.8 % (40.0-50.0); HGB 17.6 g/dL (13.5-17.5); Immature Grans % 0.5; Lymphocytes % 26.7; MCH 30.4 pg (27.0-33.0); MCHC 35.3 % (32.0-36.0); MCV 86 fL (80-95); Monocytes % 7.8; Neutrophils % 62.9; Platelet Count 162 10^3/uL (130-400); RBC 5.79 10^6/uL (4.36-5.78); RDW 11.6 % (11.8-14.1); RDW-SD 36.7 fL; WBC 8.45 10^3/uL (4.4-10.8)
[2023-04-14 19:33] LABS: TSH (W/Ref FT4) 1.08 uIU/mL (0.36-3.74)
[2023-04-15 18:47] LABS: PSA, Screening 0.2 ng/mL (<=3.5)
== END 2023-04-14 17:13 | disposition home or self-care (01) ==
LOC: NCHCN 17:12
PROVIDERS: PCP Physician Assistant; Visit Provider Physician Assistant
DX: R63.4 Abnormal weight loss (principal); R53.83 Other fatigue; C67.9 Malignant neoplasm of bladder, unspecified; F17.210 Nicotine dependence, cigarettes, uncomplicated; Z12.5 Encounter for screening for malignant neoplasm of prostate
CPT/HCPCS: 84153; 84443; 85025

== ENCOUNTER 2023-04-15 21:17 | Outpatient (REF) | payer MEDICAID, SELFPAY ==
[2023-04-15 21:15] LABS: CREATININE 0.9 mg/dL (0.70-1.30); Estimated GFR 102.12 (mL/min/1.73m2)
== END 2023-04-15 21:18 | disposition home or self-care (01) ==
LOC: NCHCN 21:17
PROVIDERS: PCP Physician Assistant; Visit Provider Internal Medicine
DX: R63.4 Abnormal weight loss (principal); R53.83 Other fatigue; Z01.812 Encounter for preprocedural laboratory examination
CPT/HCPCS: 82565

== ENCOUNTER → 2023-04-16 00:59 | Outpatient (CLI) | payer MEDICAID, SELFPAY ==
--- NOTE | 2023-04-16 | DI.CT_ITS ---
Exam(s) CT CHEST/ABD/PEL W EXAM: CT CHEST/ABD/PEL W CLINICAL HISTORY: ABNL WT LOSS, R63.4, NICOTINE DEPENDENCE, F17.200 TECHNIQUE: Imaging Protocol: Axial computed tomography images with coronal and sagittal reformatted images were created and reviewed CONTRAST MATERIAL: Intravenous: Omnipaque 350 contrast volume:100 mL Oral: Yes COMPARISON: US RENAL ULTRASOUND(P) from 01/18/2013 FINDINGS: CHEST: Tracheobronchial tree: Patent where visualized. Pulmonary parenchyma: Centrilobular and paraseptal emphysematous changes are present. There is a 9 m m nodule in the posterior aspect of the right lower lobe. No focal consolidating infiltrates are see n. Visualized thyroid gland: Unremarkable. Mediastinum and Casie: No dominant adenopathy or fluid collection. The esophagus is unremarkable. Pleura: No effusion or pneumothorax. Heart: The heart is not dilated. No coronary artery calcifications are seen. No pericardial effusion. Pulmonary arteries: No pulmonary emboli are identified. Aorta: Thoracic aorta non-dilated. Atherosclerosis is present. There is no evidence of dissection. Lymph nodes: Within normal limits. Soft tissues: Unremarkable. Bones:Within normal limits for the patient's age. ABDOMEN: Liver: Normal density. There are numerous round hypodensities in the liver. Portal, Superior Mesenteric, and Splenic Veins: Unremarkable. Gallbladder and Biliary Tract: No radiodense calculus or dilation. Pancreas: Normal density, no abnormal calcifications or inflammatory process. Spleen: Normal. Adrenals: No masses seen. Kidneys: Normal size, contour and axis. There are right renal calculi. No evidence of obstructive ur opathy. There is a simple cyst in the superior pole of the right kidney measuring 4.6 cm. No suspic ious renal masses. No masses seen. Abdominal Aorta: Abdominal portion non-dilated. Atherosclerosis. Bowel: No obstruction or bowel wall thickening. Appendix is unremarkable. Peritoneal Cavity: No ascites, collection or mesenteric inflammatory response. No free air. Lymph Nodes: Within normal limits. Bones: Within normal limits for the patient's age. Soft Tissues: Unremarkable. PELVIS: Bladder: Symmetric distention, no gross wall thickening. Reproductive Organs: Unremarkable as visualized. Lymph Nodes: Within normal limits. Bones: Within normal limits. IMPRESSION: 1. 9 mm right lower lobe pulmonary nodule. Follow-up with PET/CT scan, tissue sampling or combinatio n of there of. Three month follow-up may also be considered. (Felix et al, 2017). 2. Multiple hypodensities seen in the liver with findings most suggestive of cysts. An MRI should be considered for confirmation. 3. Centrilobular and paraseptal emphysematous changes in the lungs. 4. Right nephrolithiasis no evidence of obstructive uropathy. 5. Unexpected findings RADIATION DOSE DELIVERED: Total DLP DATA REPOSITORY: All CT scans at this facility are submitted to the National Radiology Data Registry (NRDR) Dose Index Registry (DIR) with the [employer] (A[employer]). RADIATION OPTIMIZATION: All CT scans at this facility use at least one of these dose optimization te chniques: automated exposure control; mA and/or kV adjustment per patient size (includes targeted exa ms where dose is matched to clinical indication); or iterative reconstruction.
[2023-04-16] MEDS: Normal Saline - Diluent 50 ML VIAL IJ (09:58)
[2023-04-16] MEDS: Omnipaque 350 MG/ML 500 ML BTL-Imaging package IJ (09:59)
[2023-04-16] MEDS: Barium Sulfate 2% W/V-Berry Smoothie 450 ML BTL PO (10:00)
== END ==
PROVIDERS: PCP Physician Assistant; Visit Provider Physician Assistant
DX: F17.210 Nicotine dependence, cigarettes, uncomplicated (principal); R91.8 Other nonspecific abnormal finding of lung field; Q44.6 Cystic disease of liver; N20.0 Calculus of kidney; C67.9 Malignant neoplasm of bladder, unspecified
CPT/HCPCS: 74177; 71260; 82565

== ENCOUNTER 2023-05-01 03:52 | Outpatient (CLI) | payer MEDICAID, SELFPAY ==
[2023-05-01] MEDS: Levalbuterol HFA 15 GM INH 4 PUFF IH (08:59)
[2023-05-01] MEDS: Inhaler, Assist Device 1 EACH MC (08:59)
--- NOTE | 2023-05-01 12:03 | W.PFT ---
Date of service: 05/01/23 Time of Service: 08:02 Pulmonary Function Test Result Indications: Emphysema Interpretation Spirometry: There is moderate airflow limitation. There is a significant bronchodilator response. Lung Volumes: There is hyperinflation and air trapping Diffusion Capacity: Decreased diffusion Airway Pressure: Normal airways resistance Impression Moderate airflow obstruction with air trapping and a decreased diffusion. Clinical Correlation therefore is recommended.
== END 2023-05-01 03:53 | disposition home or self-care (01) ==
LOC: RT 03:52
PROVIDERS: PCP Physician Assistant; Visit Provider Student in an Organized Health Care Education/Training Program
DX: J43.9 Emphysema, unspecified (principal)
CPT/HCPCS: 94060; 94726; 94729

== ENCOUNTER → 2023-05-15 01:45 | Outpatient (CLI) | payer MEDICAID, SELFPAY ==
[2023-05-15] MEDS: Gadoterate meglumine 20 ML VIAL 180 ML IVP (09:22)
[2023-05-15] MEDS: Normal Saline - Diluent 50 ML VIAL IJ (09:23)
--- NOTE | 2023-05-15 10:20 | DI.MRI_ITS ---
Exam(s) MR ABDOMEN WO/W EXAM: MR ABDOMEN WO/W CLINICAL HISTORY: R91.1 Solitary pulmonary nodue;R63.4 Abn weight loss; F17.200 Nicotine depe TECHNIQUE: Multiplanar multisequence MRI of the Abdomen was performed. CONTRAST MATERIAL: IV Contrast: 18 mL of Dotarem contrast administered. COMPARISON: CT CT CHEST/ABD/PEL W from 04/16/2023 FINDINGS: Liver: There are numerous well-circumscribed nonenhancing round hepatic lesions. They are homogeneou sly hyperintense on T2 and homogeneously hypointense on T1 weighted images. The findings are consist ent with cysts. No solid hepatic masses are seen. Pancreas: Unremarkable. Gallbladder and Bile Ducts: There is no evidence of cholelithiasis or biliary ductal dilatation. Adrenals: Unremarkable. No evidence of an adrenal mass. Kidneys: There are bilateral simple renal cysts. The largest is on the right kidney and measures 3.2 x 4.6 cm. No solid renal masses are present. No follow-up is recommended. Spleen: Unremarkable. Bowel: Unremarkable. Aorta: Unremarkable. Soft Tissues: Unremarkable. Bone: Unremarkable. Lymph Nodes: Unremarkable. IMPRESSION: 1. No suspicious hepatic masses. 2. Innumerable simple hepatic cysts. No follow-up is recommended. 3. Bilateral simple renal cysts. No follow-up is recommended. DATA REPOSITORY:
== END ==
PROVIDERS: PCP Physician Assistant; Visit Provider Physician Assistant
DX: N28.1 Cyst of kidney, acquired (principal); Q44.6 Cystic disease of liver
CPT/HCPCS: 74183

== ENCOUNTER 2024-01-15 17:49 | Outpatient (REF) | payer BC, SELFPAY ==
[2024-01-15 19:27] LABS: Abs Immature Grans 0.03 10^3/uL (0.0-0.06); Absolute Eosinophil Count 0.23 10^3/uL (0.0-0.7); Absolute Monocyte Count 0.67 10^3/uL (0.1-0.8); Absolute Neutrophil Count 6.07 10^3/uL (1.2-6.7); Basophils % 1.1 %; Eosinophils % 2.6 %; HCT 48.4 % (40.0-50.0); HGB 16.7 g/dL (13.5-17.5); Immature Grans % 0.3 %; Lymphocytes % 19.3 %; MCH 31.3 pg (27.0-33.0); MCHC 34.5 % (32.0-36.0); MCV 91 fL (80-95); MPV 12.4 fL (8.0-11.0); Monocytes % 7.6 %; Neutrophils % 69.1 %; Platelet Count 166 10^3/uL (130-400); RBC 5.34 10^6/uL (4.36-5.78); RDW 12.5 % (11.8-14.1); RDW-SD 41.5 fL
[2024-01-15 19:57] LABS: ALT 49 U/L (16-63); AST 31 U/L (15-37); Albumin 4.1 g/dL (3.4-5.0); Alkaline Phosphatase 83 U/L (46-116); Anion Gap 9.8 mmol/L (3-11); BUN 11 mg/dL (7-18); Bilirubin, Total 0.75 mg/dL (0.2-1.0); CO2 29.2 mmol/L (21.0-32.0); Calculated LDL 104 mg/dL (<100); Chloride 100 mmol/L (98-107); Cholesterol 202 mg/dL (<200); Estimated GFR 89.44 (mL/min/1.73m2); Glucose 113 mg/dL (74-106); HDL Cholesterol 87 mg/dL (40-60); Potassium 4.5 mmol/L (3.5-5.1); Sodium 139 mmol/L (136-145); Total Protein 7.7 g/dL (6.4-8.2); Triglyceride 55 mg/dL (<150)
[2024-01-17 12:41] LABS: HIV-1/2 Ag & Ab Screen Negative (Negative)
[2024-01-18 10:21] LABS: Hepatitis C Ab w Rflx HCV PCR Negative (Negative)
== END 2024-01-15 17:50 | disposition home or self-care (01) ==
LOC: NCHCN 17:49
PROVIDERS: PCP Physician Assistant; Visit Provider Physician Assistant
DX: Z11.4 Encounter for screening for human immunodeficiency virus [HIV] (principal); I10 Essential (primary) hypertension; Z11.59 Encounter for screening for other viral diseases
CPT/HCPCS: 80053; 80061; 86803; 87389; 85025

== ENCOUNTER 2024-12-02 19:46 | Outpatient (REF) | payer BC, SELFPAY ==
[2024-12-02 19:24] LABS: Abs Immature Grans 0.08 10^3/uL (0.0-0.06); HCT 41.6 % (40.0-50.0); HGB 13.8 g/dL (13.5-17.5); Immature Grans % 0.9 %; MCH 29.6 pg (27.0-33.0); MCHC 33.2 % (32.0-36.0); MCV 89 fL (80-95); MPV 13.0 fL (8.0-11.0); Platelet Count 179 10^3/uL (130-400); RBC 4.66 10^6/uL (4.36-5.78); RDW 12.7 % (11.8-14.1); RDW-SD 41.7 fL; WBC 9.27 10^3/uL (4.4-10.8)
[2024-12-02 19:35] LABS: Hemoglobin A1C 5.5 % (<5.7)
[2024-12-02 19:40] LABS: Iron 74 ug/dL (65-175); Total Iron Binding Capacity 344 ug/dL (250-450); Transferrin Sat 22 % (20-55)
[2024-12-02 19:51] LABS: ALT 44 U/L (16-63); AST 27 U/L (15-37); Albumin 3.8 g/dL (3.4-5.0); Alkaline Phosphatase 94 U/L (46-116); Anion Gap 6.6 mmol/L (3-11); BUN 22 mg/dL (7-18); Bilirubin, Total 0.3 mg/dL (0.2-1.0); CO2 31.4 mmol/L (21.0-32.0); Calcium 9.0 mg/dL (8.5-10.1); Chloride 104 mmol/L (98-107); Estimated GFR 88.88 (mL/min/1.73m2); Ferritin 174 ng/mL (26-388); Glucose 112 mg/dL (74-106); Potassium 4.4 mmol/L (3.5-5.1); Sodium 142 mmol/L (136-145); Total Protein 7.1 g/dL (6.4-8.2)
== END 2024-12-02 19:47 | disposition home or self-care (01) ==
LOC: NCHCN 19:46
PROVIDERS: PCP Physician Assistant; Visit Provider Physician Assistant
DX: R73.03 Prediabetes (principal); I10 Essential (primary) hypertension; R23.3 Spontaneous ecchymoses
CPT/HCPCS: 80053; 82728; 83036; 83540; 83550; 85025